=== PATIENT | male | born 1980 | race Caucasian/White ===

== ENCOUNTER 2023-02-16 13:16 | Outpatient (CLI) | payer BC, SELFPAY | END 2023-02-16 13:17 | disposition home or self-care (01) | PROVIDERS: Visit Provider Internal Medicine | DX: Z00.00 Encounter for general adult medical examination without abnormal findings (principal); I10 Essential (primary) hypertension; Z13.6 Encounter for screening for cardiovascular disorders | CPT/HCPCS: 80053; 80061 ==

== ENCOUNTER 2025-03-27 12:32 | Emergency (ER) | payer OTHER, SELFPAY ==
--- OUTSIDE RECORDS SUMMARY | 2025-03-27 12:34 | XMS_ITS | Data Portability ---
Author Organization [facility] OFF[facility] Address [address] [place] [address] [place] [address] Assessment Encounter Date Assessment Date Assessment LastModified by Organization Details LastModified Time 12/03/2024 12/03/2024 - per below - f/u 6-12 months, sooner with any worsening symtpoms or findings on lab results [email or web address] Not available 12/03/2024 15:27:17 Plan of Treatment Reminders Order Date Submit Date Provider Last Modified By Organization Details Last Modified Time Details Appointments Any 30 2024 10:00A Ronn Pierre MD Not available Not available Not available Lab HbA1c (hemoglo bin A1c), blood 2024 025 MARYANNE Not available 12/20/2024 15:39:57 lipid panel, serum 2024 025 MARYANNE Not available 12/20/2024 15:36:39 CMP, serum or plasma 2024 025 MARYANNE Not available 12/20/2024 15:38:50 CBC w/ auto diff 2024 025 MARYANNE Not available 12/20/2024 15:33:41 Referral None recorded . Procedures None recorded . Surgeries None recorded . Imaging None recorded . Medication Orders Pepcid 20 mg tablet [address], [address], 12/03/2024 15:29:46 Patient TargetsNo targets recorded. Patient Instructions Encounter Date Encounter Id Patient Instructions Last Modified By Organization Details Last Modified Time 10/26/2021 [id number] May take Ibuprofen or Tylenol prn. Use ice to arm prn. [email or web address] Not available 10/26/2021 17:51:55 Reason for Referral None Reported. Results Created Date Observation Date Name Description Value Unit Range Abnormal Flag Note LastModifiedBy Organization Detail LastModifiedTime 12/03/19 25 12/03/2024 HbA1c (hemo globi n A1c), blood A1C 6.0 high Not Available Not Availa ble 12/20/2024 15:39:38 12/03/19 25 12/03/2024 CMP, serum or plasm a total cholesterol 205 high Not Available Not Available 12/20/2024 15:38:50 12/03/19 25 12/03/2024 CMP, serum or plasm a triglyceride s 331 high Not Available Not Available 11/29 15:38:50 12/03/19 25 12/03/2024 CMP, serum or plasm a HDL 34 low Not Available Not Availa ble 12/20/2024 15:38:50 12/03/19 25 12/03/2024 CMP, serum or plasm a LDL 105 high Not Available Not Availa ble 12/20/2024 15:38:50 12/03/19 25 12/03/2024 lipid panel , serum total cholesterol 205 high Not Available Not Available 12/20/2024 15:36:12 12/03/19 25 12/03/2024 lipid panel , serum triglyceride s 331 high Not Available Not Available 11/29 15:36:12 12/03/19 25 12/03/2024 lipid panel , serum HDL 34 low Not Available Not Availa ble 12/20/2024 15:36:12 12/03/19 25 12/03/2024 lipid panel , serum LDL 105 high Not Available Not Availa ble 12/20/2024 15:36:12 12/03/19 25 12/03/2024 CBC w/ auto diff white blood count 8.08 normal Not Available Not Available 11/29 15:31:58 12/03/19 25 12/03/2024 CBC w/ auto diff hemoglobin 15.6 normal Not Available Not Sofia ilable 12/20/2024 15:31:58 12/03/19 25 12/03/2024 CBC w/ auto diff platelet count 189 normal Not Available Not Available 11/29 15:31:58 Result Notes None recorded. Problems Name Problem SNOMED Code Status Onset Date Resolution Date Notes Provider Name and Address Organization Details Recorded Time Nausea 950830627 Active 2024 Coty Pierre MD [address] [place], [address], [facility] [employer] 14:15:43 Essential hypertension 55867800 Active 2024 Coty Pierre MD [address] [place] [address], [phone], [facility] [employer] 14:16:04 Prediabetes 056769435 Active 11/2024 A1c =6.0 JENNIFER MELO MD [address] [place] [address], [phone], [facility] 16:56:23 Problem Notes None recorded. Procedures Surgical History Date Name Laterality Status Provider Name and Address Organization Details Recorded Time 06/13/20 13 arthroscopy of knee with medial [place] [address] [place] [address], [phone], [facility] [employer] 12/03/2024 13:53:35 Imaging Results None recorded. Procedure Notes None recorded. Medical Equipment None Reported. Medications Name Sig Start Date Stop Date Status Note LastModified by Organization Details LastModified Time famotidine 20 mg tablet TAKE 1 TABLET BY MOUTH EVERY DAY AT BEDTIME. active Not Available Not Available No t Available lisinopril 10 mg tablet TAKE 1 TABLET BY MOUTH EVERY DAY FOR HIGH BLOOD PRESSURE active Not Available Not Available No t Available Vitals Date Recorded Body weight Heart rate Systolic blood pressure Diastolic blood pressure Provider Name and Address Organization Details Last Updated DateTime 12/03/2024 293104.69 g 80 /min 122 mm[Hg] 80 mm[Hg] Coty Pierre MD [address] [place], [address] , [facility] [employer] 12/03/2024 14:21:41 Social History None recorded. Functional Status None recorded. Mental Status None recorded. Family History Relationship Description Onset Age of this Age Resolved Age Notes LastModified by Organization Details LastModified Time Mother Diabetes mellitus [email or web address] Not available 12/03 14:21:59 Medical History Condition Response Hypertension Y Immunizations Vaccine Type Date Status Note Provider Nam e and Address Organization Details Recorded Time COVID-19, mRNA, LNP-S, PF, 30 mcg/0.3 mL dose 10/26/2021 completed AARON PEREA [address] [place] [address], [phone], [facility] 10/26/2021 17:51:44 Past Encounters Encounter ID Performer Location Encounter Start Date Encounter Closed Date Diagnosis/Indication Diagnosis SNOMED-CT Code Diagnosis ICD10 Code Diagnosis Note [id number] AARON PEREA [facility] [address] [place] [phone] 10/26/2021 17:16:26 12/16/2021 03:52:43 Administration of SARS-CoV-2 mRNA vaccine 5645834581 Z23 [id number] Coty Pierre MD [facility] [address] [place] [phone] 12/03/2024 13:55:09 12/03/2024 15:36:34 Nausea 855649469 R11.0 - ddx: hypotensio n, GERD, DM2 (morning hypoglycem ia), atypical cardiac disease- trial of HS Pepcid, baseline labs Family his tory of diabetes mellitus 221866673 Z83.3 - check A1C Essential hypertension 43583244 I10 - in office, has excellent control on Lisinopril , consider taking at night to see if it changes am symptoms (query hypotensio n) Health Concerns Section Related Observation LastModified by Organization Detai ls LastModified Time None Recorded Concern Status LastModified by Organization Details LastModified Time None Recorded Advance Directives Directive None Recorded Payers Encounter Date Sequence Insurance Name Policy Number Policy Collado Covered Member ID Collado Member ID Guarantor Name 10/26/2021 SLIDING FEE SCHEDULE - DISCOUNT Joaquin Acosta 12/03/2024 SLIDING FEE SCHEDULE - DISCOUNT Joaquin Acosta Notes Date Note Type Note Provider Name and Address Organization Details Recorded Time 10/26/2021 text/html Requesting Covid 19 vaccine, booster AARON PEREA [address] [place], [address], [facility] [employer] 10/26/2021 17:52:23 12/03/2024 text/html Joaquin present s to clinic today as a new patient.History of essential HTN, good control on Lisinopril.Hasn't had labs for approximately 1 year. Mother has DM2. Concern today: over the past 1-2 months, has noted nausea. Symptoms present almost every morning - typically happens as soon as waking up and getting up to urinate. Happens no matter what time he wakes up. No vomiting. No light headedness, presyncope, dizziness, or chest pain. No headache.No stool changes. Coty Pierre MD [address] [facility] [place], [address], [facility] 12/03/2024 15:27:41
--- OUTSIDE RECORDS SUMMARY | 2025-03-27 12:34 | XMS_ITS | Clinical Summary ---
Author Organization [facility] Address [address] [place] [id number] Care Team Providers Care Staff Mine Warfare Officer Name Role Phone Kristin Darling Primary Care Provider Allergies No known active allergies Medications No known medications Active Problems Problem Noted Date Diagnosed Date S/P left knee arthroscopic p artial medial menisectomy by Dr. Soraida Ac on 06-13-2013 06/26/2013 Medial meniscus tear 05/14/2013 Knee pain 05/14/2013 Immunizations Immunization Administration Dates Next Due AMB Influenza, IIV3 (Age >=3 years)(Flu Clinic [facility]) 10/08/2011 Influenza, IIV3 (Age >=3 years) 11/13/2012 Tdap 01/18/2013 Family History Medical History Relation Name Comments Diabetes Father Diabetes Mother Anesthesia Problem No Family History Blood Disease No Family History Relation Name Status Comments Father Mother Social History Tobacco Use Types Packs/Day Years Used Date Smoking Tobacco: Never Smokeless Tobacco: Never Tobacco Cessation:Counseling Given: Yes Alcohol Use Standard Drinks/Week Comments Yes 0 (1 standard drink = 0.6 oz pur e alcohol) 6-8 beers about once a week. Sex and Gender Information Value Date Recorded Sex Assigned at Not on file Legal Sex Male 8:16 AM MANAGEMENT TRAINER Gender Identity Not on file Sexual Orientation Not on file Occupation Industry Job Start Date Job End Date [employer] Not on file Not on file Not on f ile Obstetrics History Last Filed Vital Signs Vital Sign Reading Time Taken Comments Blood Pressure 121/74 10/10/2013 3:40 PM MANAGEMENT TRAINER Pulse 94 10/10/2013 3:40 PM MANAGEMENT TRAINER Temperature 37.2 C (99 F) 10/10/2013 3:40 PM MANAGEMENT TRAINER Respiratory Rate 16 06/13/2013 8:25 PM CDT Oxygen Saturation 95% 10/10/2013 3:40 PM MANAGEMENT TRAINER Inhaled Oxygen Concentration - - Weight 90.7 kg (200 lb) 10/10/2013 3:40 PM MANAGEMENT TRAINER Height 165.1 cm (5' 5) 10/10/2013 3:40 PM MANAGEMENT TRAINER Body Mass Index 33.28 10/10/2013 3:40 PM MANAGEMENT TRAINER Plan of Treatment Health Maintenance Due Date Last Done Comments Depression screening for age 12+ 1991 HIV for age 15-65 1994 BMI (ht and wt on same day) for age 18+ 1997 Hepatitis C screening for ag e 18-79 1997 Tetanus booster 01/18/2023 01/18/2013 Colonoscopy through age 75 02/16/2024 Lipids for age 45-75 02/16/2024 01/22/2013 COVID-19 vaccine series ( season) 2024 Influenza Vaccine (Season Ended) 2025 11/13/2012, 10/08/2011 Tdap Completed 01/18/2013 Pneumococcal series for age 6-49 Aged Out No longer eligible b ased on patient's age to complete this topic Procedures Procedure Name Priority Date/Time Associated Diagnosis Comments LIPID PANEL W REFLEX MEASURED LDL Routine 01/22/2013 7:16 AM MANAGEMENT TRAINER Routine general medical examination at a health care facility from Last 3 Months or Most Recently Relevant to Health Maintenance Results * (ABNORMAL) LIPID PANEL W REFLEX MEASURED LDL (01/22/2013 7:16 AM MANAGEMENT TRAINER) CHOLESTEROL,TOTAL 192 100 - 199 mg/dL 01/22/2013 9:35 AM [facility] TRIGLYCERIDES 357(H) <150 mg/dL 01/22/2013 9:35 AM [facility] HDL CHOLESTEROL 30(L) >40 mg/dL 3 9:35 AM [facility] NON-HDL CHOLESTEROL 162(H) <145 mg/dl 01/22/2013 9:35 AM [facility] CHOL/HDL RATIO 6.40(H) <4.50 01/22/2013 9:35 AM [facility] LDL CHOLESTEROL 91 <=130 mg/dL 01/22/2013 9:35 AM [facility] PATIENT STATUS FASTING 01/22/2013 9:35 AM [facility] Blood specimen (specimen) BLOOD SPECIMEN / Unknown 01/22/2013 7:16 AM MANAGEMENT TRAINER 01/22/2013 7:16 AM MANAGEMENT TRAINER us Remi Bradley MD CHEMISTRY Final Re sult [facility] [address] [place] [address] from Last 3 Months or Most Recently Relevant to Health Maintenance Advance Directives * Full Code (Latest Code Status on File) Date Activated Date Inactivated Comments 06/13/2013 5:58 PM 06/13/2013 10:44 PM * Full Code Date Activated Date Inactivated Comments 06/13/2013 1:21 PM 06/13/2013 5:58 PM Care Teams Staff Mine Warfare Officer Relationship Specialty Start Date End Date Kristin Darling PA [address] [place] [id number] PCP - General Family Practice 11/28/11
[2025-03-27 12:52] VITALS: BP 139/75; PULSE 85; RESP 16; TEMP 36.8; O2SAT 96; BMI 39.5
--- NOTE | 2025-03-27 13:03 | ED.GENADULT ---
HPI - General Adult General Date Seen: 03/27/25 Chief complaint: Back Injury/Pain Stated complaint: back pain- Time Seen by Provider: 03/27/25 13:02 History of Present Illness HPI narrative: 45 yo M with h/o HTN, knee OA, presenting to the ER today for pain affecting the left upper portion of his back. The pain is worse when he breathes. He feels like it is probably inside and not muscular. Symptoms began about 2 weeks ago. No known injury. History is obtained primarily through a supervisor respiratory. Patient has a history of hypertension prediabetes but no history of cancer, immunosuppression. No history of heart disease. He has had previous appendectomy but has not had cholecystectomy. About 2 weeks ago, in the evening after work he began to have some discomfort in his left posterior thorax in the back of his lower rib cage below the scapula. It has been present ever since then. It has been getting a little bit worse over time. He notes that it is worse when he breathes and also hurts more when he bends over. He feels like the pain is deep inside his body and is probably not muscular. He is not really short of breath. He is not coughing. He has not had any swelling in his legs. No fever. No anterior chest pain. No associated flank pain. Urination has been normal. No rash or blisters. No known injury. The pain is worse when he breathes in and out and worse when he bends forward. It does not radiate down to his lower back or down his legs. It does not radiate his arms. He has not been having any pain on the right side He also notes that he has had some pain in the back of his left neck with a mild headache that is probably started about a month ago, even a few weeks prior to his back pain. The He has been taking wycr-ush-tefeorm medications which are partially effective but only temporary. Because the pains now been going on for 2 weeks, he came to the ER. He is worried that there may be some fluid in his lungs. He is not short of breath. No coughing. No fever. Related Data Previous Rx's ?Medication ?Instructions ?Recorded cetirizine 10 mg tablet 10 mg PO QDAY PRN allergy symptoms 02/02/23 #30 tabs lisinopril 10 mg tablet 10 mg PO QDAY Hypertension #90 tabs 05/16/24 cyclobenzaprine 10 mg tablet 10 mg PO TID PRN muscle spasm #10 03/27/25 tabs hydrocodone 5 mg-acetaminophen 325 1 - 2 tab PO Q4-6H PRN pain #10 03/27/25 mg tablet tabs Allergies Allergy/AdvReac Type Severity Reaction Status Date / Time No Known Drug Allergies Allergy Verified 03/27/25 15:12 [facility] Medical History (Updated 03/27/25 @ 17:11 by Kishore Giron MD) Hypertension ?I10 - Essential (primary) hypertension (ICD-10) Allergies ?T78.40XA - Allergy, unspecified, initial encounter (ICD-10) Bilateral knee pain ?M25.561 - Pain in right knee (ICD-10) ?M25.562 - Pain in left knee (ICD-10) Surgical History (Updated 02/14/23 @ 10:19 by Myra Ramirez ~ [facility]) History of arthroscopy of right knee (06/07/17) ?Z98.890 - Other specified postprocedural states (ICD-10) History of appendectomy ?Z90.49 - Acquired absence of other specified parts of digestive tract (ICD-10) History of carpal tunnel surgery of left wrist (12/24/21) ?Z98.890 - Other specified postprocedural states (ICD-10) Social History (Reviewed 02/14/23 @ 10:08 by Myra Ramirez ~ [facility]) Smoking Status: Current some day smoker How often do you have a drink containing alcohol: never How often do you have six or more drinks on one occasion: Never AUDIT-C Alcohol total score: 0 Non-prescribed substance use: denies use Exam Narrative: Exam Narrative: Constitutional: Appears well-developed and well-nourished. Alert. Conversant in [place]. Very polite.. Non toxic. HENT: Head: Atraumatic. Nose: Nose normal. Mouth/Throat: Oral mucosa is clear and moist. no trismus. Pharynx normal. Tonsils symmetric. No tonsillar enlargement, erythema, or exudate. Eyes: Conjunctivae normal. EOM normal. Pupils equal, round, and reactive to light. No scleral icterus. Neck: Normal range of motion. Neck supple. No tracheal deviation present. No JVD. Normal range of motion. Cardiovascular: Normal rate, regular rhythm. No gallop. No friction rub. No murmur heard. Symmetric radial and PT artery pulses Pulmonary/Chest: Effort normal. No stridor. No respiratory distress. No wheezes. No rales. No rhonchi . No tenderness. No rash. No bruising. Abdominal: Soft. Bowel sounds normal. No distension. No mass. No tenderness. No right upper quadrant tenderness or Thompson sign. No CVA tenderness. No rebound. No guarding. Musculoskeletal: RUE: Normal range of motion. No tenderness. No deformity LUE: Normal range of motion. No tenderness. No deformity RLE: Normal range of motion. No edema. No tenderness. No deformity LLE: Normal range of motion. No edema. No tenderness. No deformity Neurological: Alert and oriented to person, place, and time. Normal strength. CN II-VII intact. No sensory deficit. GCS eye subscore is 4. GCS verbal subscore is 5. GCS motor subscore is 6. Normal coordination gait normal. Skin: Skin is warm and dry. No rash noted. No pallor. Normal capillary refill. Psychiatric: Normal mood. Normal affect. Const: Vital Signs, click to edit/add: Vital Signs - 24 hr 03/27/25 12:52 Temperature 98.3 F Pulse Rate [Pulse Oximeter] 85 Respiratory Rate 16 Blood Pressure [Ri ght Upper Arm] 139/75 Pulse Oximetry 96 Oxygen Delivery Me thod Room Air Course Vital Signs Vital signs: Initial Vital Signs Temperature 98.3 F 03/27/25 12:52 Temperature Source Temporal Artery Scan 03/27/25 12:52 Pulse Rate 85 03/27/25 12:52 Respiratory Rate 16 03/27/25 12:52 Blood Pressure 139/75 03/27/25 12:52 Blood Pressure Mean 96 03/27/25 12:52 Blood Pressure Position Sitting 03/27/25 12:52 Pulse Oximetry 96 03/27/25 12:52 Oxygen Delivery Method Room Air 03/27/25 12:52 Vital Signs Temperature 98.3 F 03/27/25 12:52 Pulse Rate 85 03/27/25 12:52 Respiratory Rate 16 03/27/25 12:52 Blood Pressure 139/75 03/27/25 12:52 Pulse Oximetry 96 03/27/25 12:52 Oxygen Delivery Method Room Air 03/27/25 12:52 Temperature 98.3 F 03/27/25 12:52 Pulse Rate 85 03/27/25 12:52 Respiratory Rate 16 03/27/25 12:52 Blood Pressure 139/75 03/27/25 12:52 Pulse Oximetry 96 03/27/25 12:52 Oxygen Delivery Method Room Air 03/27/25 12:52 Medications Administered Medications: Discontinued Medications Generic Name Dose Route Start Last Admin Trade Name Freq PRN Reason Stop Dose Admin Ketorolac Tromethamine 15 mg 03/27/25 13:17 03/27/25 13:52 Ketorolac 15 Mg/Ml Inj IVP 03/27/25 13:18 15 mg ONCE ONE Administration Medical Decision Making MDM Narrative Medical decision making narrative: Very pleasant 45-year-old male presents to the ER today with a couple weeks of atraumatic pain in his left posterior thorax. He feels like the pain is deep inside and probably not muscular. He does not have any associated neck pain or low back pain. No numbness or weakness in his arms or legs. Differential here is broad. Consider possible atypical presentation of cardiac problem. EKG shows sinus rhythm and no ischemia. Troponin is negative. There is no evidence for pericarditis on EKG. Consider possible pulmonary pathology. Consider PE causing his left posterior thorax pain. He has no tachycardia or hypoxia. No recent travel or immobilization. No leg swelling. Overall low risk. D-dimer is normal so would hold off on CT PA. Also consider possible aortic pathology with his posterior thorax pain. CT angiogram of his chest is obtained and shows no acute vascular abnormality. CT scan also shows no evidence for rib fracture, pneumonia, pneumothorax, pleural effusion or other definitive explanation for his pain. Consider possible kidney etiology for his left posterior thorax pain but overall the pain is a bit too high to be classic for ?flank pain. ?. Urinalysis is normal. Transaminases are mildly abnormal. This prompted right upper quadrant ultrasound to see if there was some sort of referred pain into the thorax from biliary colic or cholecystitis. Gallbladder ultrasound is normal. He does not have any bruising or redness or rash. No blisters to suggest shingles. At this point the etiology for his posterior thorax pain is uncertain. Potentially could be musculoskeletal after all. He is reassured by the workup so far. Discussed the findings in detail with the patient through the supervisor respiratory. Would recommend symptomatic supportive treatment for now. Follow up in clinic within the next 1-2 weeks to recheck LFTs. Precautions for return to the ER reviewed. Lab Data Labs: Lab Results 03/27/25 03/27/25 03/27/25 Range/Units 13:37 13:46 Unknown WBC 6.63 (4.50-11.00) K/uL RBC 5.03 (4.30-5.90) m/uL Hgb 15.3 (13.5-17.5) gm/dL Hct 44.1 (37.0-53.0) % MCV 88 (80-100) fL MCH 30 (26-34) pg MCHC 35 (32-36) gm/dL RDW Coeff of Kay 13.0 (11.5-15.5) % Plt Count 182 (140-440) K/uL Neut % (Auto) 54.4 (42.0-72.0) % Lymph % (Auto) 32.1 (20-44) % [place] % (Auto) 7.4 (0.0-11.0) % Eos % (Auto) 5.6 (0.0-7.0) % Baso % (Auto) 0.3 (0.0-3.0) % Neut # (Auto) 3.61 (1.7-7.0) K/uL Lymph # (Auto) 2.13 (0.90-2.90) K/uL [place] # (Auto) 0.50 (0.00-0.90) K/UL Eos # (Auto) 0.37 (0.00-0.50) K/uL Baso # (Auto) 0.02 (0.00-0.30) K/uL Abs Immat Gran (auto) 0.01 (0.00-0.30) K/uL Imm/Tot Granulo (auto) 0.2 % D-Dimer Quant (PE/DVT) 0.17 (0.00-0.50) ug/ml Sodium 137 (135-149) mmol/L Potassium 3.9 (3.6-5.1) mmol/L Chloride 103 (96-114) mmol/L Carbon Dioxide 25 (20-32) mmol/L Anion Gap 9 (7-15) mEq/L BUN 19 (5-24) mg/dL Creatinine 0.7 (0.5-1.5) mg/dL Estimated Creat Clear 118.99 Estimated GFR 115 ml/min Glucose 137 H (60-115) mg/dL Calcium 8.8 (8.4-10.6) mg/dL Total Bilirubin 0.7 (0.1-1.5) mg/dL AST 41 H (12-35) U/L ALT 51 H (4-50) U/L Alkaline Phosphatase 104 (40-150) U/L Total Protein 7.4 (6.0-8.3) g/dL Albumin 4.6 (3.3-5.0) g/dL Urine Color Yellow (Yellow) Urine Appearance Clear (Clear) Urine pH 6.5 (5.0-8.5) Ur Specific [place] 1.025 (1.000-1.030) Urine Protein Negative (Negative) Urine Glucose (UA) Negative (Negative) Urine Ketones Negative (Negative) Urine Blood Trace-intact A (Negative) Urine Nitrite Negative (Negative) Urine Bilirubin Negative (Negative) Urine Urobilinogen 0.2 (0.2-1.0) Ur Leukocyte Esterase Negative (Negative) Urine RBC 0-2 (0-2) Urine WBC 0-2 (0-5) Ur Squamous Epith Cells None (None-Few) Urine Bacteria Few A (None) POC Troponin I 0.00 L (0.01-0.04) ng/ml Imaging Data CT scan - chest: Attestation: I have reviewed the pertinent imaging results. Radiologist's impression: IMPRESSION: 1. CHEST: Minimal basilar atelectasis. A few scattered benign-appearing nodules as described above. No pleural abnormality. 2. SYSTEMIC ARTERIAL DISTRIBUTION/AORTA: Normal 3. PULMONARY ARTERY DISTRIBUTION: Normal finding 5. OSSEOUS STRUCTURES AND BODY WALL: No acute appearing finding US GB: Attestation: I have reviewed the pertinent imaging results. Radiologist's impression: IMPRESSION: Unremarkable ultrasound of the gallbladder and common bile duct. ECG Data Attestation: I personally reviewed and interpreted this ECG as follows: Interpretation: Normal sinus rhythm Rate: 75 TN: 156 QRS axis: Normal axis. No pathologic Q-waves. ST segment/T wave: No ST segment elevation or depression QTc: 428 Discharge Plan Discharge Clinical Impression: Acute left-sided thoracic back pain Patient Disposition: Home, Self-Care Condition: Stable Instructions: Back Pain (ED) Additional Instructions: Please follow-up with your regular doctor within 1 week for a recheck. Ask your doctor to recheck your liver function blood tests within the next 1-2 weeks. If you have worsening pain, trouble breathing, numbness in your arms or legs or feet, trouble with urination or any problems, please return to the ER right away. Prescriptions: New cyclobenzaprine 10 mg tablet 10 mg PO TID PRN (Reason: muscle spasm) Qty: 10 0RF hydrocodone-acetaminophen 5-325 mg tablet 1 - 2 tab PO Q4-6H PRN (Reason: pain) Qty: 10 0RF No Action cetirizine 10 mg tablet 10 mg PO QDAY PRN (Reason: allergy symptoms) Qty: 30 3RF lisinopril 10 mg tablet 10 mg PO QDAY Qty: 90 3RF Follow Up/Referrals: Melvin Gooden MD [Primary Care Provider] - Stand Alone Forms: [employer] Info Instructions
[2025-03-27 13:50] LABS: Basophils Absolute Auto 0.02 K/uL (0.00-0.30); Basophils Percent Auto 0.3 % (0.0-3.0); Eosinophils Absolute Auto 0.37 K/uL (0.00-0.50); Eosinophils Percent Auto 5.6 % (0.0-7.0); Hematocrit 44.1 % (37.0-53.0); Hemoglobin* 15.3 gm/dL (13.5-17.5); Immature Granulocytes Abs Auto 0.01 K/uL (0.00-0.30); Immature Granulocytes Pct Auto 0.2 %; Lymphocytes Absolute Auto 2.13 K/uL (0.90-2.90); Lymphocytes Percent Auto 32.1 % (20-44); Mean Corpuscular HGB Conc 35 gm/dL (32-36); Mean Corpuscular Hemoglobin 30 pg (26-34); Mean Corpuscular Volume 88 fL (80-100); Monocytes Percent Auto 7.4 % (0.0-11.0); Neutrophils Absolute Auto 3.61 K/uL (1.7-7.0); Neutrophils Percent Auto 54.4 % (42.0-72.0); Platelet Count* 182 K/uL (140-440); Red Blood Count 5.03 m/uL (4.30-5.90); White Blood Count* 6.63 K/uL (4.50-11.00)
[2025-03-27] MEDS: KETOROLAC 15 MG/ML inj IVP (13:52)
[2025-03-27 13:54] LABS: Slide Review Reflex No
--- OUTSIDE RECORDS SUMMARY | 2025-03-27 13:54 | XMS_ITS | Clinical Summary ---
Author Organization [facility] Address [address] [place] [id number] Care Team Providers Care Lute Packer Or Applier Name Role Phone Kristin Darling Primary Care [...] on file Legal Sex Male 8:16 AM NURSING STAFF DEVELOPMENT COORDINATOR Gender Identity Not on file Sexual Orientation Not on file Occupation Industry Job Start Date Job End Date [employer] Not on file Not on file Not on f ile Obstetrics History Last Filed Vital Signs Vital Sign Reading Time Taken Comments Blood Pressure 121/74 10/10/2013 3:40 PM NURSING STAFF DEVELOPMENT COORDINATOR Pulse 94 10/10/2013 3:40 PM NURSING STAFF DEVELOPMENT COORDINATOR Temperature 37.2 C (99 F) 10/10/2013 3:40 PM NURSING STAFF DEVELOPMENT COORDINATOR Respiratory Rate 16 06/13/2013 8:25 PM CDT Oxygen Saturation 95% 10/10/2013 3:40 PM NURSING STAFF DEVELOPMENT COORDINATOR Inhaled Oxygen Concentration - - Weight 90.7 kg (200 lb) 10/10/2013 3:40 PM NURSING STAFF DEVELOPMENT COORDINATOR Height 165.1 cm (5' 5) 10/10/2013 3:40 PM NURSING STAFF DEVELOPMENT COORDINATOR Body Mass Index 33.28 10/10/2013 3:40 PM NURSING STAFF DEVELOPMENT COORDINATOR Plan of Treatment Health Maintenance Due Date [...] REFLEX MEASURED LDL Routine 01/22/2013 7:16 AM NURSING STAFF DEVELOPMENT COORDINATOR Routine general medical examination at a health care facility from Last 3 Months or Most Recently Relevant to Health Maintenance Results * (ABNORMAL) LIPID PANEL W REFLEX MEASURED LDL (01/22/2013 7:16 AM NURSING STAFF DEVELOPMENT COORDINATOR) CHOLESTEROL,TOTAL 192 100 - 199 mg/dL 01/22/2013 9:35 AM [facility] TRIGLYCERIDES 357(H) <150 mg/dL 01/22/2013 9:35 AM [facility] HDL CHOLESTEROL 30(L) >40 mg/dL 3 9:35 AM [facility] NON-HDL CHOLESTEROL 162(H) <145 mg/dl 01/22/2013 9:35 AM [facility] CHOL/HDL RATIO 6.40(H) <4.50 01/22/2013 9:35 AM [facility] LDL CHOLESTEROL 91 <=130 mg/dL 01/22/2013 9:35 AM [facility] PATIENT STATUS FASTING 01/22/2013 9:35 AM [facility] Blood specimen (specimen) BLOOD SPECIMEN / Unknown 01/22/2013 7:16 AM NURSING STAFF DEVELOPMENT COORDINATOR 01/22/2013 7:16 AM NURSING STAFF DEVELOPMENT COORDINATOR us Remi Bradley MD CHEMISTRY Final Re sult [facility] [address] [place] [address] from Last 3 Months or Most Recently Relevant to Health Maintenance Advance Directives * Full Code (Latest Code Status on File) Date Activated Date Inactivated Comments 06/13/2013 5:58 PM 06/13/2013 10:44 PM * Full Code Date Activated Date Inactivated Comments 06/13/2013 1:21 PM 06/13/2013 5:58 PM Care Teams Lute Packer Or Applier Relationship Specialty Start Date End Date Kristin Darling PA [address] [place] [id number] PCP - General Family Practice 11/28/11
[2025-03-27 14:03] LABS: Albumin* 4.6 g/dL (3.3-5.0); Chloride* 103 mmol/L (96-114); Potassium* 3.9 mmol/L (3.6-5.1); Sodium* 137 mmol/L (135-149)
[2025-03-27 14:06] LABS: Alanine Aminotransferase* 51 U/L (4-50); Alkaline Phosphatase* 104 U/L (40-150); Anion Gap 9 mEq/L (7-15); Aspartate Amino Transferase* 41 U/L (12-35); Bilirubin Total* 0.7 mg/dL (0.1-1.5); Blood Urea Nitrogen* 19 mg/dL (5-24); Carbon Dioxide* 25 mmol/L (20-32); Creatinine* 0.7 mg/dL (0.5-1.5); Est. Creatinine Clearance* 118.99; Estimated Glomerular Filt Rate 115 ml/min; Total Protein* 7.4 g/dL (6.0-8.3)
[2025-03-27 14:07] LABS: Calcium* 8.8 mg/dL (8.4-10.6); Glucose* 137 mg/dL (60-115)
[2025-03-27 14:08] LABS: D Dimer Quantitative* 0.17 ug/ml (0.00-0.50)
[2025-03-27 14:34] LABS: Appearance Urine Clear (Clear); Bilirubin Urine Negative (Negative); Blood Urine Trace-intact (Negative); Color Urine Yellow (Yellow); Glucose Urine Negative (Negative); Ketones Urine Negative (Negative); Leukocyte Esterase Urine Negative (Negative); Nitrite Urine Negative (Negative); Protein Urine Negative (Negative); Specific Gravity Urine 1.025 (1.000-1.030); Urobilinogen Urine 0.2 (0.2-1.0); pH Urine 6.5 (5.0-8.5)
--- NOTE | 2025-03-27 14:35 | CRLHL7_ITS ---
For Patients: As a result of the 21st Century Cures Act, medical imaging exams and procedure reports are released immediately into your electronic medical record. You may view this report before your referring provider. If you have questions, please contact your health care provider. INDICATION: Chest pain. Clinical signs and symptoms of aortic dissection. COMPARISON: None TECHNIQUE: CT examination of the chest, abdomen and pelvis was performed before and after the uneventful intravenous administration of 95 cc of Isovue 370. Thin section axial images were obtained from the thoracic inlet through the pubic symphysis. Oral contrast was not administered. Sagittal and coronal reformatted imaging was performed. 3D reformats/MIP imaging was also provided. A noncontrast chest CT was performed. After contrast administration, a chest, abdomen and pelvis study was performed during the systemic arterial phase of injection. Please note that all CT scans at this facility use dose modulation, iterative reconstruction, and/or weight-based dosing when appropriate to reduce radiation dose to as low as reasonably achievable. FINDINGS: CHEST: There is no mediastinal or hilar adenopathy or mass. There is no pericardial effusion. A small hiatal hernia is noted. The lungs show minimal basilar atelectasis. A few tiny nodules are noted. The largest is in the right middle lobe measuring 2.5 millimeters. A nodule of the size generally does not require follow-up. Consider 12 month follow-up chest CT in a high risk individual. Normal pleural spaces. AORTA AND SYSTEMIC ARTERIAL VASCULARITY: Normal. No intramural hematoma. No dissection. PULMONARY ARTERY DISTRIBUTION: Normal ABDOMEN AND PELVIS: LIVER/BILIARY SYSTEM:Hepatic steatosis. No focal mass. The gallbladder appears normalthe gall bladder appears normal. ADRENALS: Normal KIDNEYS, URETERS and BLADDER:The kidneys appear normal. No visible mass, calculus or hydronephrosis. The ureters and bladder as visualized appear normal. SPLEEN:Normal appearance. PANCREAS: Appears normal. RETROPERITONEUM and MESENTERY: There is no mass, adenopathy or aortic aneurysm. GASTROINTESTINAL SYSTEM: There is no evidence of diverticulitis, colitis, mechanical obstruction, or appendicitis. The small bowel as visualized appears normal.Scattered diverticulosis PELVIS: No mass, adenopathy or free fluid. OSSEOUS STRUCTURES and ABDOMINAL WALL: There is an age-appropriate appearance of the osseous structures.No significant abdominal wall defect. OTHER: No free fluid or free air. IMPRESSION: 1. CHEST: Minimal basilar atelectasis. A few scattered benign-appearing nodules as described above. No pleural abnormality. 2. SYSTEMIC ARTERIAL DISTRIBUTION/AORTA: Normal 3. PULMONARY ARTERY DISTRIBUTION: Normal finding 5. OSSEOUS STRUCTURES AND BODY WALL: No acute appearing finding Please note that all CT scans at this facility use dose modulation, iterative reconstruction, and/or weight-based dosing when appropriate to reduce radiation dose to as low as reasonably achievable. Dictated by Kali Nash MD @ 03/27/2025 3:21:03 PM (Electronically Signed)
[2025-03-27 14:41] LABS: Bacteria Urine Few; RBC Urine 0-2 (0-2); WBC Urine 0-2 (0-5)
--- NOTE | 2025-03-27 16:05 | CRLHL7_ITS ---
For Patients: As a result of the Century Cures Act, medical imaging exams and procedure reports are released immediately into your electronic medical record. You may view this report before your referring provider. If you have questions, please contact your health care provider. INDICATION: Right upper quadrant pain.. TECHNIQUE: Ultrasound abdomen limited. COMPARISON: None. FINDINGS: Gallbladder: No stones or sludge. Normal wall thickness. No pericholecystic fluid. Common bile duct: 4 mm. IMPRESSION: Unremarkable ultrasound of the gallbladder and common bile duct. Dictated by Ana Zaragoza MD @ 03/27/2025 4:56:07 PM (Electronically Signed)
== END 2025-03-27 17:24 | disposition home or self-care (01) ==
PROVIDERS: Emergency Provider Emergency Medicine; PCP Internal Medicine
DX: M54.6 Pain in thoracic spine (principal); R07.1 Chest pain on breathing; M54.2 Cervicalgia; R51.9 Headache, unspecified; I10 Essential (primary) hypertension; R73.03 Prediabetes
CPT/HCPCS: 36415; 71275; 74174; 76705; 80053; 81001; 84484; 85025; 85379; 87086; 93005; 96374; 99284; 99285; J1885; Q9967

== ENCOUNTER 2025-07-15 09:34 | Outpatient (CLI) | payer OTHER, SELFPAY | END 2025-07-15 09:35 | disposition home or self-care (01) | LOC: OP CLINIC 09:36 | PROVIDERS: PCP Internal Medicine; Visit Provider Internal Medicine | DX: Z53.09 Procedure and treatment not carried out because of other contraindication (principal) ==

== ENCOUNTER 2025-08-06 10:04 | Outpatient (CLI) | payer OTHER, SELFPAY ==
--- NOTE | 2025-08-06 11:31 | P.ANES_ITS ---
Anesthesia Charges Start Date/Time Anesthesia Start Date: 08/06/25 Anesthesia Start Time: 11:06 Stop Date/Time Anesthesia Stop Date: 08/06/25 Anesthesia Stop Time: 11:28 Coding CPT Codes CPT Codes: ANES LWR INTST SCR COLSC - 82314 ([id number]) P3 - PATIENT W/SEVERE SYS DISEASE, QX - JAZZ MUSICIAN SVC W/ MD MED DIRECTION, QK - SHOULDER BONER 2-4 CNCRNT ANES PROC
--- NOTE | 2025-08-06 11:31 | W.ANESCHARGE ---
Anesthesia Charges Start Date/Time Anesthesia Start Date: 08/06/25 Anesthesia Start Time: 11:06 Stop Date/Time Anesthesia Stop Date: 08/06/25 Anesthesia Stop Time: 11:28 Coding CPT Codes CPT Codes: ANES LWR INTST SCR COLSC - 51188 ([id number]) P3 - PATIENT W/SEVERE SYS DISEASE, QX - LABORATORY DIRECTOR SVC W/ MD MED DIRECTION, QK - MACHINING ASSOCIATE 2-4 CNCRNT ANES PROC
--- NOTE | 2025-08-06 11:37 | P.ANES_ITS ---
Anesthesia Charges Start Date/Time Anesthesia Start Date: 08/06/25 Anesthesia Start Time: 11:06 Stop Date/Time Anesthesia Stop Date: 08/06/25 Anesthesia Stop Time: 11:28 Coding CPT Codes CPT Codes: ANES LWR INTST SCR COLSC - 37603 ([id number]) QK - TICKET MAKER 2-4 CNCRNT ANES PROC, QX - FENCE ERECTOR SUPERVISOR SVC W/ MED DIRECTION, P3 - PATIENT W/SEVERE SYS DISEASE
--- NOTE | 2025-08-06 11:37 | W.ANESCHARGE ---
Anesthesia Charges Start Date/Time Anesthesia Start Date: 08/06/25 Anesthesia Start Time: 11:06 Stop Date/Time Anesthesia Stop Date: 08/06/25 Anesthesia Stop Time: 11:28 Coding CPT Codes CPT Codes: ANES LWR INTST SCR COLSC - 72101 ([id number]) QK - BONE WORKER 2-4 CNCRNT ANES PROC, QX - BOOMBOAT OPERATOR SVC W/ MED DIRECTION, P3 - PATIENT W/SEVERE SYS DISEASE
== END 2025-08-06 10:05 | disposition home or self-care (01) ==
LOC: OP CLINIC 10:07
PROVIDERS: PCP Internal Medicine; Visit Provider Surgery
DX: Z12.11 Encounter for screening for malignant neoplasm of colon (principal)
CPT/HCPCS: 00812; 45378; T1013; J2704

== ENCOUNTER 2025-08-19 15:45 | Outpatient (RCR) | payer OTHER, SELFPAY ==
--- NOTE | 2025-08-19 16:39 | PT.OPDNX ---
PT [employer] Outpatient Daily Note PT [facility] Outpatient Daily Note Start: 08/05/25 12:39 Freq: Status: Active Protocol: Document 08/19/25 16:03 NLR (Rec: 08/19/25 16:38 NLR [id number]) E-signed By Cecille Soto DPT PT OP Daily Progress Note Visit Information Note Type Discharge Note Visit Number 3 Insurance Information Insurance Name Other; See Comments Insurance Self Pay Information/Comments Medical Diagnosis M17.12 L primary knee OA M17.11 R primary knee OA M25.562 L knee pain M25.561 R knee pain Bilateral knee medial and patellofemoral compartment osteoarthritis end-stage on the left, moderate to severe on the right Bilateral IT band syndrome Treating Diagnosis M25.562 L knee pain M25.561 R knee pain Imaging Report 07/08/25 L knee xray: These show end-stage medial Information patellofemoral compartment osteoarthritis on the with [id number] joint space narrowing and osteophytic spurring. 05/22/25 R knee xray: Medial compartment narrowing and spurring with increased varus angulation. Patellofemoral spurring. Suprapatellar joint effusion. No fracture. Referring MD Pancho Werner MD Subjective Preferred Name ADDISON Nuñez arrives for PT with [employer] provided healthcare interpreter services. He now has new inserts for his shoes that he is wearing with increasing frequency. He is KT taping himself with his son's KT tape (the Rock didn't stick). He is doing his stretches and feels more flexibile and states he is having little to no pain. Eval: He states he has been bow legged his entire life and has always had fairly flat feet. He started having bilateral knee pain a long time ago, but progressively worsened over the past two years. Xrays reveal L>R advanced knee arthritis. His job occasionally requires squatting or sitting on the floor which are extremely difficulty for him. He states he has recently had knee injections that were somewhat helpful. He also notes past knee arthroscopies, L in 2015 and R in 2019. Pain Comments 0-12/07 Date of Last 07/08/25 Physician Visit Home Exercise Home Exercise Reviewed, modified and progressed HEP today. Comments Access Code: [email or web address] URL: [email or web address] Date: 08/12/2025 Prepared by: Cecille Soto Exercises - Seated Hamstring Stretch - 1-2 x daily - 5-7 x weekly - 1-2 reps - 30-60 seconds hold - stretch exercise type - Sidelying ITB Stretch - 1 x daily - 5-7 x weekly - 1 -2 reps - 30-60 seconds hold - stretch exercise type Patient Education - Iliotibial Band Syndrome - Kinesiology Tape Education - Kinesiology Tape Resources Objective Other/Pertinent ROM: RIGHT knee 5-140; LEFT knee 5-120 Objective STRENGTH: RIGHT thigh 4+/5; LEFT thigh 4+/5 POSTURE: LEFT knee varus, RIGHT knee varus, LEFT pronation, RIGHT pronation PALPATION: Patient exhibits tenderness to palpation at medial knee, lateral knee EDEMA: None SPECIAL TESTS: Positive BILATERAL valgus stress, patellar grind, Sinan test, Rony test. GAIT: independent with wide base of support FOOTWEAR: Patient arrives wearing high top nikes that do not provide medial arch support, he doesn't tie them Patient Instructed Yes in Risks/Benefits Therapeutic Exercise Therapeutic Exercise 4 Minutes (minutes) Therapeutic Exercise - Standing step IT band stretch : To Restore - Seated hamstring stretch Functional Status Neuromuscular Re-Ed Neuromuscular 15 Reeducation Minutes (minutes) Neuromuscular Kinesiotape applied to bilateral knee using one strips Reeducation Comments of Rock Richard (#2) in a C pattern for a functional/ biomechanical correction. Patient instructed in risks and benefits and proper care of KT tape; questions were answered to the best of my ability. Instructed patient in self application for PF pain, he was able to return demonstrate. Assessed and educated in appropriate footwear to improve functional biomechanics of movement via neuromuscular melina graded muscle activation for improved motor control at bilateral TFL/ITB, hamstrings muscle group(s) to improve knee motor control, knee mobility dynamics, foot and ankle motor control, foot and ankle mobility dynamics. Treatment Minutes Timed Code Treatment 19 Minutes Total Treatment Time 19 Billing Units Neuromuscular 1 Reeducation Units Assessment/Impression Assessment/ Addison is doing well. He now has inserts for his Impression shoes to improve pes planus, is noticing improvement in his flexibility with the stretches, is able to self KT tape for PF correction and states he is having little pain. Discussed via healthcare interpreter that if his pain returns he should be able to return for more skilled intervention for up to a year with his PT order, but right now he is not symptomatic. 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 No further skilled intervention remains at this time. Will DC with HEP. Primary Functional None Limitations Plan of Care Physical Therapy 1. Patient will be independent with home exercise Goals program as instructed, modified and progressed by physical therapist in order to be independently and actively participating in their rehabilitation and return to prior level of function. Goal to be achieved by 11/01/2025. ACHIEVED 2. Patient will demonstrate ability to walk for 30 minutes(s) without significant increase in pain greater than 2/10 to allow patient to be able to safely and independently return to participation in desired level of function with daily activities such walking for exercise, going to work without pain or difficulty. Goal to be achieved by 11/01/2025. ACHIEVED 3. Patient will ascend/descend 2 full flight(s) of stairs with [id number] pattern without significant increase in difficulty or pain over 2/10 allowing for safe and independent mobility through their home/work environment. Goal to be achieved by 11/01/2025. ACHIEVED Daily Plan of Care Discharge Daily Plan of Care DC with HEP Comments Discharge Note Discharge Summary Addison is doing well. He now has inserts for his shoes to improve pes planus, is noticing improvement in his flexibility with the stretches, is able to self KT tape for PF correction and states he is having little pain. Discussed via healthcare interpreter that if his pain returns he should be able to return for more skilled intervention for up to a year with his PT order, but right now he is not symptomatic. No further skilled intervention remains at this time. Will DC with HEP. Date of First Visit 08/05/25 for Therapy Date of Last Visit 08/19/25 for Therapy Initial Primary Difficulty walking, going down stairs, getting up and Functional down from the floor. Limitations Initial Pain Level 2-7/10 - worse after inactivity or in the morning. Feels very stiff and occasionally sharp. Pain Level at 0-1/10 Discharge Recommendations/ Met All Therapy Goals Reason for Discharge Discharge DC with HEP. Continue with KT taping for PF correction Instructions and LE stretches. Thank You For This Thank you for this physical therapy referral. Discharge Referral is attached. Signature not required. Contact us if you have any questions or concerns by phone at [phone] or by fax at [phone] attn: Cecille Goddard, PT, DPT. Should his pain return after injection subsides, we'd be happy to see him again with notable inability to change his genuvarus and pes planus which are likely significant contributing factors to his knee pain.
== END 2025-10-03 11:24 | disposition home or self-care (01) ==
PROVIDERS: PCP Internal Medicine; Visit Provider Orthopaedic Surgery
DX: M17.0 Bilateral primary osteoarthritis of knee (principal); M76.31 Iliotibial band syndrome, right leg; M76.32 Iliotibial band syndrome, left leg; Z51.89 Encounter for other specified aftercare
CPT/HCPCS: 97110; 97112; 97161; T1013

== ENCOUNTER 2025-10-08 06:14 | Day surgery (SDC) | payer OTHER, SELFPAY ==
[2025-10-08 06:25] VITALS: BP 124/70; PULSE 70; RESP 16; TEMP 36.8; O2SAT 98; BMI 42.0
[2025-10-08] MEDS: ETHYL CHLORIDE 1 APPLICATION 1 APPLIC TOPICAL (06:50)
[2025-10-08] MEDS: BUPIVACAINE 0.5% 30 ML INJECTION (06:50)
[2025-10-08 07:25] VITALS: BP 116/66; PULSE 67; RESP 24; O2SAT 98
[2025-10-08 07:30] VITALS: BP 122/69; PULSE 75; RESP 22; O2SAT 97
--- NOTE | 2025-10-08 07:33 | P.ORPRC_ITS ---
Procedure Note Date of procedure: 10/08/25 Procedure: PREOPERATIVE DIAGNOSIS: 1. Right carpal tunnel syndrome POSTOPERATIVE DIAGNOSIS: 1. Right carpal tunnel syndrome PROCEDURE: 1. Right open carpal tunnel release SURGEON: Jono Watson MD. MAINTENANCE AND ENGINEERING MANAGER: AMANDA Woo ANESTHESIA: Local anesthetic (50:50 mixture of 1% lidocaine with epi and 0.5% marcaine plain) - 10ml total IMPLANTS: None EBL: 2 mL TOURNIQUET: None COMPLICATIONS: None evident INDICATIONS: The patient is a pleasant 45-year-old male who has experienced right hand numbess/tingling affecting the radial 3.5 digits for multiple months. It has progressively gotten worse. Nonoperative management has been tried and failed, and therefore surgery was recommended. DESCRIPTION OF PROCEDURE: Following a thorough discussion of risks, benefits, and alternatives consent was obtained and the operative extremity was marked. The patient was brought to the operating room and placed supine on the operating table. Local anesthesia induction was undertaken in preop holding. No antibiotics were administered as this was planned to be a local case only. Proper time-out was performed identifying proper patient, site, and procedure. The operative extremity was prepped and draped in the appropriate sterile fashion using ChloraPrep. An incision was made in line with the radial border of the ring finger beginning 1 cm distal to the distal wrist crease and progressing for another 2.5cm distal. Caution was taken to stay proximal to Hahn's cardinal line. Sharp incision through the skin, subcutaneous tissue, and palmar fascia was performed. The thenar musculature was bluntly elevated off the transverse carpal ligament. The ligament was directly visualized, and divided sharply with a 15 blade. This was released from its most proximal to the most distal extent. Metzenbaum scissor was also utilized to release the fascia extension proximally. We confirmed complete release of the transverse carpal ligament. Closure was performed with 4-O nylon in interrupted fashion. Soft dressings were applied, and the patient was transferred to the recovery room in stable condition. PLAN: 1. Encourage elevation of the operative extremity. 2. Range of motion of the fingers and hand/wrist as tolerated. 3. Ibuprofen/acetaminophen and/or oxycodone as needed for pain control. 4. Follow up with PA visit or nurse visit in 12-16 days for wound check and suture removal.
[2025-10-08 07:35] VITALS: BP 113/65; PULSE 73; RESP 24; O2SAT 97
[2025-10-08] MEDS: BACITRACIN OINTMENT BULK TUBE 1 APPLIC TOPICAL (07:38)
[2025-10-08 07:40] VITALS: BP 108/60; PULSE 68; RESP 22; O2SAT 98
[2025-10-08 07:50] VITALS: BP 124/68; PULSE 72; RESP 16; TEMP 36.2; O2SAT 99
== END 2025-10-08 08:00 | disposition home or self-care (01) ==
LOC: OR 06:18
PROVIDERS: PCP Internal Medicine; Visit Provider Orthopaedic Surgery Sports Medicine
PROC: (CPT 64721; principal; 2025-10-08 07:15)
DX: G56.01 Carpal tunnel syndrome, right upper limb (principal)
CPT/HCPCS: 64721; T1013; J0665